=== PATIENT | female | born 1990 | race Caucasian/White ===

== ENCOUNTER 2018-08-07 16:29 | Inpatient (IN) | payer MEDICAID ==
[2018-08-07 17:13] VITALS: BMI 28.0
[2018-08-07] MEDS ORDERED: Fentanyl/Bupivacaine HCl 250 ML EPI ONE (17:15)
[2018-08-07] MEDS ORDERED: Lactated Ringer's 1,000 ML IV SCH ×2 (17:30→20:59)
[2018-08-07] MEDS ORDERED: Lactated Ringer's 1,000 ML IV ONE (17:30)
[2018-08-07] MEDS ORDERED: Penicillin G 5 Million Unit Vial IVPB ONE (17:45)
[2018-08-07 17:52] LABS: BASO % 0.2 % (0.0-2.0); EOS # 0.1 K/uL (0.0-0.7); EOS % 0.4 % (0.0-4.0); HEMOGLOBIN 13.2 g/dL (12.0-16.0); LYMPH # 2.9 K/uL (1.0-4.3); LYMPH % 23.1 % (20.0-40.0); MEAN CELL VOLUME 95.5 fl (81.0-99.0); MEAN CORPUSCULAR HEMOGLOBIN 33.1 pg (27.0-31.0); MEAN CORPUSCULAR HGB CONC 34.6 g/dL (33.0-37.0); MEAN PLATELET VOLUME 8.2 fl (7.2-11.7); MONO # 0.7 K/uL (0.0-0.8); MONO % 5.7 % (0.0-10.0); NEUT # 8.9 K/uL (1.8-7.0); NEUT % 70.6 % (50.0-75.0); NRBC % 0.4 % (0.0-0.0); RBC 3.99 Mil/uL (3.80-5.20); RED CELL DISTRIBUTION WIDTH 15.4 % (11.5-14.5); WHITE BLOOD COUNT 12.6 K/uL (4.8-10.8)
[2018-08-07] MEDS ORDERED: Lidocaine 1% Inj (20ml) ONE (18:11)
[2018-08-07] MEDS ORDERED: Oxytocin 30 UNIT 30 UNITS/500 ML BAG IV ONE (18:12)
[2018-08-07] MEDS ORDERED: Benzocaine/Menthol SPRAY TOP PRN ×2 (18:21→20:59)
--- NOTE | 2018-08-07 19:07 | OBHP ---
Datetime: 08/07/2018 18:25 IP Admit Plan: Admit to unit; Initiate labor protocol Pelvic Type - PN: Adequate Extremities - PN: Normal Abdomen - PN: Normal Back - PN: Normal Breast - PN: Not Done Lungs - PN: Normal Heart - PN: Normal Thyroid - PN: Not Done Neurologic - PN: Not Done HEENT - PN: Not Done General - PN: Normal FHR - Baseline A Provider: 150 EGA AdmitDate IP: 39.1 Vital Signs Provider: Reviewed IP Indication for Induction: Not Applicable IP Chief Complaint: Uterine contractions; Maternal discomfort NICHD Variability Prov Fetus A: Moderate 6-25bpm NICHD Accel Fetus A IP Provider: [id number] NICHD Decel Fetus A IP Provider: None Dilatation, Provider: 6 Effacement, Provider: 90 Station, Provider: -1 Genitourinary Exam: Not Done DTRs - PN: Normal Datetime: 08/07/2018 18:23 IP Adm Impression: Term, intrauterine ; Active labor; Intact Membranes Admit Comment, IP Provider: 28-year-old at 39.1 weeks (confirmed via 1st tri u/s) presents for intense uterine contractions since noon, 4 hours prior to presentation. Patient has good moveme nt and denies vaginal bleeding and gush of fluid from vagina. She reports contractions every 3-5 wesley yany. As per patient, uncomplicated thus far besides one episodes of gallstones. : Nicolás Cardoso (documented until 30+w but had GBS done) OBHx: x1 PMH: gallstones (this ) Surg: denies Meds: denies Social: denies illicit drugs, tob, alcohol ROS: denies headache, dizziness, nausea, vomiting, shortness of breath and chest pain. PE: uncomfortable during contractions Resp: no respiratory distress Abd: no tenderness to palpation, U/S shows cephalic presentation VE: /-1 Labs: GBS pos, HIV neg, GC/CL neg, HbsAg neg, rubella immune Assessment:28-year-old at 39.1 weeks (confirmed via 1st tri u/s) presents for intense uterine contractions. Plan: -Admit for normal induction of labor -Pain control PRN -Continuous EFM -Labs -IVF OB Hospitalist on-call...With PGY1 I saw and examined this patient. Agree with note Active labor. .. With dye colorist formulator, we discussed labor, pain management, delivery and care [facility]O GBS+ IV Abx Presentation-Admit: Vertex Membranes, Provider: Intact Pool Provider: Negative FHR Category Provider Fetus A: Category I
[2018-08-07] MEDS ORDERED: OXYTOCIN/0.9 % NS 20 UNIT/1,000 ML BAG IV SCH ×2 (19:30→20:59)
[2018-08-07 20:37] VITALS: O2SAT 99
--- NOTE | 2018-08-08 01:08 | OBDS ---
DELIVERY PERSONNEL Delivery Doctor: Shiela Timmons DO Parts Counter Associate: Delmis Almanza Resident: Dr Mckee MATERNAL INFORMATION Delivery Anesthesia: Local Medications in Delivery: Pitocin Estimated Blood Loss (ml): 200 Placenta Cultured: No Maternal Complications: None Provider Comments: at 39.1 weeks delivered viable male infant @ 18:16 pm via with 9/ 9 @1/@5 minutes, 3725 weighing gm, 2nd degree perinneal tear. Procedure: of a viable male infant from cephalic presentation. Infants head delivered in a controlled manner. No nuchal cord was noted. Infant was bulb suctioned at the perineum and was cryin g spontaneously. Infant was placed on mother's stomach. Cord was doubled clamped and cut. Placenta wa s delivered intact spontaneously and three vessel cords was noted. Intravenous fluid 1000 ml plus Pit ocin30 units were given. Cervix and vagina inspected for lacerations; 2nd degree perineal laceration was noted and repaired via 2.0 Vicryl . Estimated blood loss was 200 cc. OB hospitalist on-call. With PGY1, I attended and repair of perineal laceration. [facility] LABOR SUMMARY EDC: 08/13/2018 00:00 No. Babies in Womb: 0 Attempted: No Labor Anesthesia: None LABOR INFORMATION Reason for Induction: Not Applicable Onset of Labor: 08/07/2018 12:00 Complete Dilatation: 08/07/2018 18:05 Oxytocin: N/A Group B Beta Strep: Positive Antibiotics # of Doses: Orestes G 5 millon units x1 Antibiotics Time of Last Dose: 1729 Steroids Given: None Reason Steroids Not Administered: Not Applicable MEMBRANES Membranes Rupture Method: Spontaneous Rupture of Membranes: 08/07/2018 18:05 Length of Rupture (hrs): 0.18 Amniotic Fluid Color: Clear Amniotic Fluid Amount: Moderate Amniotic Fluid Odor: Normal STAGES OF LABOR Stage 1 hrs: 6 Stage 1 min: 5 Stage 2 hrs: 0 Stage 2 min: 11 Stage 3 hrs: 0 Stage 3 min: 36 Total Time in Labor hrs: 6 Total Time in Labor min: 52 VAGINAL DELIVERY Episiotomy: None Laceration Extension: Second Degree Laceration Type: Perineal Laceration Repair: Yes Laceration Repair Note: 2nd degree perineal laceration was noted and repaired via 2.0 Vicryl. Loca l anestheisa was infiltrated prior to repair Initial Vag Sponge Count: laps=5 with rings and 1 without Final Vag Sponge Count: laps=5 with rings and 1 without Initial Vag Sharps Count: 2 Final Vag Sharps Count: 2 Sponge Count Correct: Yes Sharps Count Correct: Yes Count Comment: correct count MD BABY A INFORMATION Delivery Date/Time: 08/07/2018 18:16 Method of Delivery: Vaginal Born in Route : No : N/A Forceps: N/A Vacuum Extraction: N/A Shoulder Dystocia : No SHOULDER DYSTOCIA BABY A Delivery Date/Time: 08/07/2018 18:16 PRESENTATION/POSITION BABY A Presentation: Cephalic Cephalic Presentation: Vertex Breech Presentation: N/A PLACENTA INFORMATION BABY A Placenta Delivery Time : 08/07/2018 18:52 Placenta Method of Delivery: Spontaneous Placenta Status: Delivered SCORES BABY A Heart Rate 1 min: >100 bpm Resp Effort 1 min: Good Cry Reflex Irritability 1 min: Cough or Sneeze or Pulls Away Muscle Tone 1 min: Active Motion Color 1 min: Body [place], Extremities Blue Resuscitation Effort 1 min: Tactile Stimulation SCORE 1 MIN: 9 Heart Rate 5 min: >100 bpm Resp Effort 5 min: Good Cry Reflex Irritability 5 min: Cough or Sneeze or Pulls Away Muscle Tone 5 min: Active Motion Color 5 min: Body [place], Extremities Blue Resuscitation Effort 5 min: N/A SCORE 5 MIN: 9 INFORMATION BABY A Gestational Age at Delivery: 39.1 Gestational Status: Term Outcome : Liveborn Condition : Stable Sex: Male IDENTIFICATION/MEDS BABY A ID Band Number: [id number] ID Band Location: Left Leg; Left Arm Vitamin K Given : Not Given Erythromycin Given: Not Given WEIGHT/LENGTH BABY A Infant Birthweight (gms): 3725 Weight (lb): 8 Infant Weight (oz): 3 CORD INFORMATION BABY A No. Cord Vessels: 3 Nuchal Cord : N/A Nuchal Cord Other: n/a True Knot: n/a Cord pH Baby Arterial: n/a Cord pH Baby Venous: n/a Cord Blood Taken: Yes Banking/Donate Info: n/a Suction: Mouth; Nose
--- NOTE | 2018-08-08 01:12 | OBDS ---
DELIVERY PERSONNEL Delivery Doctor: Shiela Timmons DO Thermal Spray Operator: Delmis Almanza Resident: Dr Mckee MATERNAL INFORMATION Delivery Anesthesia: Local Medications in Delivery: Pitocin Estimated Blood Loss (ml): 200 Placenta Cultured: No Maternal Complications: None Provider Comments: at 39.1 weeks delivered viable male infant @ 18:16 pm via with 9/ 9 @1/@5 minutes, 3725 weighing gm, 2nd degree perinneal tear. Procedure: of a viable male infant from cephalic presentation. Infants head delivered in a controlled manner. No nuchal cord was noted. Infant was bulb suctioned at the perineum and was cryin g spontaneously. Infant was placed on mother's stomach. Cord was doubled clamped and cut. Placenta wa s delivered intact spontaneously and three vessel cords was noted. Intravenous fluid 1000 ml plus Pit ocin30 units were given. Cervix and vagina inspected for lacerations; 2nd degree perineal laceration was noted and repaired via 2.0 Vicryl . Estimated blood loss was 200 cc. OB hospitalist on-call. With PGY1, I attended and repair of perineal laceration. [facility] LABOR SUMMARY EDC: 08/13/2018 00:00 No. Babies in Womb: 0 Attempted: No Labor Anesthesia: None LABOR INFORMATION Reason for Induction: Not Applicable Onset of Labor: 08/07/2018 12:00 Complete Dilatation: 08/07/2018 18:05 Oxytocin: N/A Group B Beta Strep: Positive Antibiotics # of Doses: Orestes G 5 millon units x1 Antibiotics Time of Last Dose: 1730 Steroids Given: None Reason Steroids Not Administered: Not Applicable MEMBRANES Membranes Rupture Method: Spontaneous Membranes Rupture Method: Spontaneous Rupture of Membranes: 08/07/2018 18:05 Rupture of Membranes: 07/31/2018 18:05 Length of Rupture (hrs): 0.18 Length of Rupture (hrs): 168.18 Amniotic Fluid Color: Clear Amniotic Fluid Color: Clear Amniotic Fluid Amount: Moderate Amniotic Fluid Amount: Moderate Amniotic Fluid Odor: Normal Amniotic Fluid Odor: Normal STAGES OF LABOR Stage 1 hrs: 6 Stage 1 min: 5 Stage 2 hrs: 0 Stage 2 min: 11 Stage 3 hrs: 0 Stage 3 min: 36 Total Time in Labor hrs: 6 Total Time in Labor min: 52 VAGINAL DELIVERY Episiotomy: None Episiotomy: None Laceration Extension: Second Degree Laceration Extension: Second Degree Laceration Type: Perineal Laceration Type: Perineal Laceration Repair: Yes Laceration Repair Note: 2nd degree perineal laceration was noted and repaired via 2.0 Vicryl. Loca l anestheisa was infiltrated prior to repair Initial Vag Sponge Count: laps=5 with rings and 1 without Final Vag Sponge Count: laps=5 with rings and 1 without Initial Vag Sharps Count: 2 Final Vag Sharps Count: 2 Sponge Count Correct: Yes Sharps Count Correct: Yes Count Comment: correct count MD BABY A INFORMATION Infant Delivery Date/Time: 08/07/2018 18:16 Method of Delivery: Vaginal Born in Route : No : N/A Forceps: N/A Vacuum Extraction: N/A Shoulder Dystocia : No SHOULDER DYSTOCIA BABY A Infant Delivery Date/Time: 08/07/2018 18:16 PRESENTATION/POSITION BABY A Presentation: Cephalic Cephalic Presentation: Vertex Breech Presentation: N/A PLACENTA INFORMATION BABY A Placenta Delivery Time : 08/07/2018 18:52 Placenta Method of Delivery: Spontaneous Placenta Status: Delivered SCORES BABY A Heart Rate 1 min: >100 bpm Resp Effort 1 min: Good Cry Reflex Irritability 1 min: Cough or Sneeze or Pulls Away Muscle Tone 1 min: Active Motion Color 1 min: Body [place], Extremities Blue Resuscitation Effort 1 min: Tactile Stimulation SCORE 1 MIN: 9 Heart Rate 5 min: >100 bpm Resp Effort 5 min: Good Cry Reflex Irritability 5 min: Cough or Sneeze or Pulls Away Muscle Tone 5 min: Active Motion Color 5 min: Body [place], Extremities Blue Resuscitation Effort 5 min: N/A SCORE 5 MIN: 9 INFORMATION BABY A Gestational Age at Delivery: 39.1 Gestational Status: Term Outcome : Liveborn Infant Condition : Stable Sex: Male IDENTIFICATION/MEDS BABY A ID Band Number: [id number] ID Band Location: Left Leg; Left Arm Vitamin K Given : Not Given Erythromycin Given: Not Given WEIGHT/LENGTH BABY A Infant Birthweight (gms): 3725 Infant Weight (lb): 8 Infant Weight (oz): 3 CORD INFORMATION BABY A No. Cord Vessels: 3 Nuchal Cord : N/A Nuchal Cord Other: n/a True Knot: n/a Cord pH Baby Arterial: n/a Cord pH Baby Venous: n/a Cord Blood Taken: Yes Banking/Donate Info: n/a Infant Suction: Mouth; Nose
[2018-08-08 06:34] LABS: BASO % 0.2 % (0.0-2.0); EOS # 0.1 K/uL (0.0-0.7); EOS % 0.6 % (0.0-4.0); HEMOGLOBIN 10.8 g/dL (12.0-16.0); LYMPH # 2.2 K/uL (1.0-4.3); LYMPH % 17.6 % (20.0-40.0); MEAN CORPUSCULAR HEMOGLOBIN 33.1 pg (27.0-31.0); MEAN CORPUSCULAR HGB CONC 34.4 g/dL (33.0-37.0); MONO # 0.7 K/uL (0.0-0.8); MONO % 5.8 % (0.0-10.0); NEUT # 9.6 K/uL (1.8-7.0); NEUT % 75.8 % (50.0-75.0); RBC 3.26 Mil/uL (3.80-5.20); RED CELL DISTRIBUTION WIDTH 15.1 % (11.5-14.5); WHITE BLOOD COUNT 12.7 K/uL (4.8-10.8)
--- NOTE | 2018-08-08 09:50 | OBPPN ---
Datetime: 08/08/2018 06:16 PP Pain Prov: Within normal limits PP Nausea Prov: Denies PP Flatus Prov: Yes PP BM Prov: No PP Breasts Prov: Not Done PP Heart Prov: Normal PP Lungs Prov: Normal PP Abdomen/Uterus Prov: Normal PP Lochia Prov: Normal PP Vulva/Perineum Prov: Normal PP CVA Tenderness Prov: Not Done PP Extremities Prov: Normal PP C/S Incision Prov: Not Applicable PP Progress Prov: Normal PP Impression Prov: Normal progression PP Plan Prov: Continue present management PP Progress Note Prov: Post- note S: Patient seen this morning at bedside, she is now s/p on 08/07/18, today is PPD 1. Pt reports no complaints today. Reports minimal abdominal pain but is tolerable with pain medication. Sh e is tolerating PO intake w/o N/V, ambulating to bathroom without any difficulties, lochia is similar to menses in volume, Breast feeding w/o difficulty. Patient reports flatus but no BM as of yet. O: VS WNL PE: Patient is resting comfortably in her hospital bed. In no acute distress. HEENT: EOMI, Mucous membrane moist. RESP: Clear air entry bilaterally. CV: RRR, no murmurs, gallops or rubs. ABD: soft, non-tender, uterus firm below umbilicus LE: No edema, Todd's negative. A/P: 28 y/o now s/p on 08/07/18, today is PPD1- normal post- progression. -Encourage ambulation -Encourage -PNV 1 tab PO daily -Ibuprofen 600mg 1 tab Q6h prn for mild-mod pain -Anticipate discharge tomorrow, 08/09/18 Yaneli Mckee MD PGY1 Patient was seen with the resident I agree with the note IP PP Procedures: None Vital Signs Provider PP: Reviewed; Within Normal Limits
[2018-08-08] MEDS ORDERED: Influenza Vaccine (5 YR UP)/PF 60 MCG/0.5 ML SYR IM ONE (10:00)
[2018-08-09 19:08] VITALS: BP 108/61; PULSE 84; RESP 20; TEMP 97.9
== END 2018-08-09 13:55 | disposition home or self-care (01) | DRG 373 ==
LOC: H.EROB2 16:29 → H.L&D 17:14 → H.OB/GYN 20:25
PROVIDERS: ADMIT Obstetrics & Gynecology; ATTEND Obstetrics & Gynecology
PROC: 10E0XZZ Delivery of Products of Conception, External Approach (ICD-10-PCS; principal; 2018-08-07)
PROC: 0KQM0ZZ Repair Perineum Muscle, Open Approach (ICD-10-PCS; 2018-08-07)
PROC: 4A1HXCZ Monitoring of Products of Conception, Cardiac Rate, External Approach (ICD-10-PCS; 2018-08-07)
PROC: 3E02340 Introduction of Influenza Vaccine into Muscle, Percutaneous Approach (ICD-10-PCS; 2018-08-08)
DX: O99.824 Streptococcus B carrier state complicating childbirth (principal); O70.1 Second degree perineal laceration during delivery; Z3A.39 39 weeks gestation of pregnancy; Z37.0 Single live birth; Z23 Encounter for immunization